=== PATIENT | female | born 1965 | race Caucasian/White ===

== ENCOUNTER 2024-12-02 21:43 | Emergency (ER) | payer SELFPAY ==
[~2024-12-02] VITALS: Ht 167.6 cm; Wt 70.3 kg
[2024-12-02 22:25] VITALS: BP 138/76; PULSE 125; RESP 18; TEMP 98.6
[2024-12-02 22:33] VITALS: BP 138/76; PULSE 125; RESP 18; TEMP 98.6
[2024-12-02 22:34] LABS: BASOPHIL % 0.8 % (0.1-1.2); EOSINOPHIL # 0.1 10^3/uL (0.0-0.2); EOSINOPHIL % 2.1 % (0.0-5.0); HEMATOCRIT(ML) 36.2 % (36.0-46.0); HEMOGLOBIN 12.2 g/dL (12.0-15.0); LYMPHOCYTES # 1.68 10^3/uL1 (1.0-4.8); LYMPHOCYTES % 31.8 % (24.0-44.0); MEAN CORP HGB 31.7 pg (26-34); MEAN CORP HGB CONCENTRATION 33.7 g/dL (33-36.5); MONOCYTES # 0.3 10^3/uL (0.3-0.8); MONOCYTES % 6.2 % (5.0-12.0); NEUTROPHIL # 3.1 10^3/uL (1.8-7.7); NEUTROPHILS % 58.9 % (41.0-85.0); PLATELET COUNT 196 10^3/uL (150-400); RED BLOOD CELL 3.85 10^6/uL (4.00-5.20); RED CELL DISTRIBUTION WIDTH 12.5 % (11.5-14.5); WHITE BLOOD CELL 5.3 10^3/uL (4.5-11.0)
[2024-12-02 22:43] LABS: +ADD MANUAL DIFF(NO CHRG) NO
[2024-12-02] MEDS: NITROSTAT SL STA (22:44)
[2024-12-02 23:03] LABS: ALBUMIN(ML) 3.9 g/dL (3.4-5.0); ALBUMIN/GLOBULIN RATIO 1.054; ANION GAP 16.6; CALCIUM 8.8 mg/dL (8.4-10.5); CARBON DIOXIDE 23.9 mmol/L (20.0-32); CREATINE KINASE MB 2.1 ng/mL (0.5-3.6); EST GFR, NON-AA 57.4 (>/=60); POTASSIUM 3.5 mmol/L (3.6-5.2)
[2024-12-02 23:29] VITALS: BP 128/79; PULSE 98; RESP 18; TEMP 98.6; O2SAT 98
[2024-12-02] MEDS ORDERED: ASPIRIN PO STA (23:39)
== END 2024-12-02 23:40 | disposition left against medical advice (07) ==
LOC: ER 21:43 → EDBD 21:43 → ER 23:40
DX: R04.0 Epistaxis (principal); R07.9 Chest pain, unspecified
CPT/HCPCS: 36415; 71045; 80053; 82550; 82553; 83880; 84484; 85025; 85379; 85610; 85730; 93005; 99285